=== PATIENT | male | born 1955 | race Two or more races ===

== ENCOUNTER → 2024-12-11 | Outpatient (CLI) | payer OTHER, SELFPAY ==
--- NOTE | 2024-12-11 14:00 | XR_ITS ---
Examination: MRI lumbar spine without contrast Date and time of exam: December 03, 2024 1519 hours INDICATIONS: Lower back pain radiating down the upper left leg 6 months Technique: Multiple MRI axial and sagittal sections lumbar spine. Sagittal T2-weighted images, TR 3500, TE 118 T1 weighted transverse sections, TR 688 T8.5, T2-weighted sagittal sections T1 weighted sagittal sections TR 621, TE 30 T2 axial sections, TR 4, 190, TE 84. Findings: Adequate alignment lumbar vertebral bodies No lumbar fracture. Diffuse lumbar disc desiccation. L5-S1 6 mm central left paracentral disc bulge displacing the left S1 nerve root L4-L5 4 mm central lumbar disc bulge L3-L4 no disc protrusion L2-L3 no disc protrusion L1-L2 no disc protrusion IMPRESSION: L5-S1 6 mm central left paracentral disc bulge displacing the left S1 nerve root L4-L5 4 mm central lumbar disc bulge
== END | disposition home or self-care (01) ==
DX: M51.370 Other intervertebral disc degeneration, lumbosacral region with discogenic back pain only (principal); M51.360 Other intervertebral disc degeneration, lumbar region with discogenic back pain only
CPT/HCPCS: 72148